=== PATIENT | female | born 1990 | race Caucasian/White ===

== ENCOUNTER 2018-03-12 23:32 | Emergency (ER) | payer BC ==
--- NOTE | 2018-03-13 00:13 | PDOC ---
History of Present Illness - General Stated Complaint: DIFF BREATHING Time Seen by Provider: 03/13/18 00:12 - History of Present Illness Initial Comments: 27 year old presenting 22 weeks by US with cough, SOB, and left sided chest pain worse with coughing for the pat day. States that she had some trouble breathing earlier this morning along with some nasal congestion that has been worsening over the day. After a few bouts of coughing she had some left sided chest pain. Denies any recent travel but has a long road trip to [place] in January 29-. Mother states that she always has mild respiratory issues during seasonal changes. Of note she lost a twin because of complications 4 months prior. Denies any fevers, chills, nausea, vomiting, diarrhea, or other symptoms. 03/13/18 03:13 Past History - Past Medical History Allergies/Adverse Reactions: Allergies Allergy/AdvReac Type Severity Reaction Status Date / Time No Known Allergies Allergy Verified 06/14/15 12:59 Home Medications: Ambulatory Orders Albuterol Sulfate Inhaler - [Ventolin HFA Inhaler -] 1 inh PO Q4H PRN 07/14/15 Docusate Sodium [Colace -] 100 mg PO DAILY 07/14/15 Pantoprazole Sodium [Protonix -] 40 mg PO DAILY #0 07/14/15 Rosuvastatin Calcium [Crestor] 20 mg PO DAILY 07/14/15 Anemia: No Asthma: No Cancer: No Cardiac Disorders: No CVA: No COPD: No CHF: No Dementia: No Diabetes: No GI Disorders: Yes (hx constipation) Disorders: No HTN: No Hypercholesterolemia: Yes Liver Disease: No Seizures: No Thyroid Disease: No - Surgical History Appendectomy: No Cardiac Surgery: No Cholecystectomy: No Lung Surgery: No Neurologic Surgery: No Orthopedic Surgery: No - Immunization History Immunization Up to Date: Yes - Suicide/Smoking/Psychosocial Hx Smoking Status: No Smoking History: Never smoked Have you smoked in the past 12 months: No Number of Cigarettes Smoked Daily: 0 Hx Alcohol Use: No Drug/Substance Use Hx: No Substance Use Type: None Hx Substance Use Treatment: No Review of Systems - Review of Systems Constitutional: No: Chills, Diaphoresis, Fever, Loss of Appetite HEENTM: No: Blurred Vision, Tearing Respiratory: Yes: Cough, Shortness of Breath, SOB with Exertion, Wheezing. No: Productive cough Cardiac (ROS): Yes: Chest Pain. No: Irregular Heart Rate, Lightheadedness, Palpitations, Chest Tightness ABD/GI: No: Constipated, Diarrhea, Nausea, Vomiting : No: Burning, Dysuria, Discharge, Frequency Musculoskeletal: No: Back Pain, Gout, Joint Pain Integumentary: No: Lesions, Lumps Neurological: No: Headache, Numbness, Paresthesia, Seizure Psychiatric: No: Anxiety, Depression Endocrine: No: Excessive Sweating, Flushing, Intolerance to Heat Hematologic/Lymphatic: No: Anemia, Blood Clots, Easy Bleeding, Easy Bruising *Physical Exam - Physical Exam General Appearance: Yes: Nourished, Appropriately Dressed. No: Apparent Distress HEENT: positive: EOMI, PAWAN, Normal ENT Inspection, Normal Voice Neck: positive: Trachea midline, Normal Thyroid, Supple. negative: Tender, Rigid Respiratory/Chest: positive: Respiratory Distress. negative: Chest Tender, Lungs Clear, Normal Breath Sounds (bilateral wheezes with mildly reduced air movement), Accessory Muscle Use Cardiovascular: positive: Regular Rhythm, Tachycardia. negative: Regular Rate Gastrointestinal/Abdominal: positive: Normal Bowel Sounds, Flat, Soft. negative : Tender Lymphatic: negative: Adenopathy, Tenderness Musculoskeletal: positive: Normal Inspection. negative: Decreased Range of Motion Extremity: positive: Normal Capillary Refill, Normal Inspection, Normal Range of Motion, Swelling (bilateral non-pitting pedal edema). negative: Tender Integumentary: positive: Normal Color, Dry, Warm Neurologic: positive: it disaster recovery manager II-XII NML intact, Fully Oriented, Alert, Normal Mood/ Affect, Normal Response, Motor Strength 10/22 ED Treatment Course - LABORATORY CBC & Chemistry Diagram: 03/13/18 01:00 03/13/18 01:00 Medical Decision Making - Medical Decision Making 27 year old female 23 weeks by LMP presenting with SOB, chest pain, wheezing, and nasal congestion. Labs WNL with exception of mildly elevated WBC. Patient's symptoms slightly improved after one albuterol neb and Tylenol 650. We discussed he risks/ benefits of a cxr to rule out PNA and patient was on board but then changed her mind when the xr tech discussed the radiation exposure with her. We then discussed getting a VQ scan for her elevated D-dimer (ordered after a team discussion) but she refused the study until she spoke with her high risk specialist because she recently lost two children during a high risk . We discussed the case with Dr. Coe who felt we should admit them to medicine but patient ended up refusing admission and signed out AMA after acknowledging the risks of her leaving our department including , worsening chest pain, and to her children. She did admit that her chest pain and breathing had improved after one more duoneb. She was discharged and sent up to the OB floor for heart rate check. 03/13/18 07:34 *DC/Admit/Observation/Transfer Diagnosis at time of Disposition: Cough, Shortness of breath - Discharge Dispostion Disposition: AGAINST MEDICAL ADVICE Condition at time of disposition: Stable Decision to Admit order: No - Referrals Referrals: [facility] [Provider Group] - Patient Instructions Printed Discharge Instructions: DI for Shortness of Breath Additional Instructions: You are leaving against our medical advice. Risks include worsening chest pain, worsening shortness of breath, loss of your life, or loss of your baby's life. If you want an inhaler please discuss it with your . Please use humidified air to help your breathing as well. Please follow up with your primary care physician and OBGyn within a few days. Please return to our ED if you have worsening breathing, worsening chest pain, or other concerning symptoms. Labor and delivery discharge instructions: Follow up with Primary Care doctor or Internal Medicine doctor prior to seeing your Youth Director to care for the shortness of breath. Discharge to home. Diet and activity as tolerated. Continue to drink 8-10 glasses of water a day to stay hydrated. Return to the labor and delivery unit if your water breaks, you begin bleeding, you begin having contractions that are increasing in intensity for longer than 1 hour, or you do not feel the baby moving. Print Language: GEORGIAN - Post Discharge Activity Forms/Work/School Notes: Back to Work
--- NOTE | 2018-03-13 00:19 | PDOC ---
Attending Attestation - Resident Resident Name: Fabien Jang - ED Attending Attestation I have performed the following: I have examined & evaluated the patient, The case was reviewed & discussed with the resident, I agree w/resident's findings & plan - HPI HPI: 03/13/18 00:56 Pt comes with tachcardia (122bpm) and SOB at 22 weeks of . She states that for the past couple of years she has had seasonal allergies. Today she is wheezing. Pt has a pulsox of 98% on RA. Pt states that she is not anxious, however, this past Jul she lost a twin gestation due to complications and she may be anxious. Pt tells me that in Jan 29- she drove to and from [place] to [place]. - Physicial Exam PE: 03/13/18 01:36 Agree with resident. Pt has wheezing bilaterally and throughout. Pt has tachy s1s2 rhythm Color is good. speaking in full sentences. She is comfortable. Pt has swollen ankles bilaterally - Medical Decision Making 03/13/18 01:36 Pt has an elevated WBC count. 03/13/18 02:12 Patient Name: BHAVIN PHAM THIS IS A PRELIMINARY REPORT FROM [facility] DATE OF SERVICE: 2018-03-13 01:31:13 IMAGES: 40 EXAM: Ultrasound DUPLEX VASCULAR US-2 LEGS HISTORY: Concern for deep vein thrombosis COMPARISON: None. FINDINGS: Ultrasound of bilateral lower extremity veins demonstrates normal compression flow and augmentation IMPRESSION: No deep vein thrombosis 03/13/18 04:05 Pt still feels SOB; she has 125 HR. She is refusing CXR and CT scan because she wants no radiation. She wants to speak to her PMD before she even gets a VQ scan. Pt will be admitted to med surg vs tele vs HOSPITAL NURSING ASSISTANT for her SOB and CP and 23 weeks gestation. 03/13/18 04:42 We spoke to OB cotton buyer Dr. Coe, who will not admit the patient; she will consult; she wants pt admitted to the medicine service. We are microblogging Hospitalist now. Pt will be admitted to medicine. 03/13/18 04:48 Pt is refusing to be admitted. She understands that she may have a pulmonary blood clot. She understands that we have not completely worked up her CP and her HTN. 03/13/18 04:55 Pt will AMA.
[2018-03-13 00:36] VITALS: BP 134/81; PULSE 121; TEMP 98.2; BMI 29.4
[2018-03-13] MEDS ORDERED: ALBUTEROL SO4 0.083% IH SOL 2.5 MG/3 ML VIAL.NEB. NEB ONE ×2 (00:37→00:45)
[2018-03-13 01:19] LABS: BASO % 0.4 % (0-2.0); EOS % 2.3 % (0-4.5); HEMOGLOBIN 11.3 GM/dL (10.7-15.3); LYMPH % 12.3 % (8-40); MCH 31.7 pg (25.7-33.7); MCHC 35.2 g/dl (32.0-36.0); MEAN PLT VOLUME 8.2 fl (7.5-11.1); MONO % 4.6 % (3.8-10.2); NEUT % 80.4 % (42.8-82.8); PLATELET COUNT 197 K/MM3 (134-434); RBC 3.55 M/mm3 (3.60-5.2); RDW 13.6 % (11.6-15.6); WHITE BLOOD COUNT 13.6 K/mm3 (4.0-10.0)
[2018-03-13 01:42] LABS: ALBUMIN 3.2 g/dl (3.4-5.0); ALK PHOS 65 U/L (45-117); ANION GAP 7 MMOL/L (8-16); BILIRUBIN,TOTAL 0.2 mg/dL (0.2-1); BLOOD UREA NITROGEN 9 mg/dL (7-18); CALCIUM 8.4 mg/dL (8.5-10.1); CHLORIDE 105 mmol/L (98-107); CO2 26 mmol/L (21-32); CREATININE 0.7 mg/dL (0.55-1.3); GLUCOSE,RANDOM 106 mg/dL (74-106); POTASSIUM 3.7 mmol/L (3.5-5.1); SGOT/AST 22 U/L (15-37); SGPT/ALT 24 U/L (13-61); SODIUM 138 mmol/L (136-145); TOT PROT 7.1 g/dl (6.4-8.2)
[2018-03-13 02:08] LABS: URINE APPEARANCE CLOUDY; URINE BILIRUBIN NEGATIVE (<2.0 mg/dL); URINE COLOR LTYELLOW; URINE GLUCOSE (UA) NEGATIVE (NEGATIVE); URINE KETONE NEGATIVE (NEGATIVE); URINE LEUK ESTERASE NEGATIVE (NEGATIVE); URINE NITRITE NEGATIVE (NEGATIVE); URINE PROTEIN NEGATIVE (NEGATIVE); URINE UROBILINOGEN NEGATIVE mg/dL (0.2-1.0)
[2018-03-13] MEDS ORDERED: SODIUM CHLORIDE 0.9% 500 ML INFUS.BAG IV ONE (02:23)
[2018-03-13] MEDS ORDERED: ACETAMINOPHEN 500 MG TABLET (FP) PO ONE (02:59)
[2018-03-13] MEDS ORDERED: ACETAMINOPHEN 325 MG TABLET (FP) ONE (03:54)
[2018-03-13] MEDS ORDERED: ALBUTEROL SO4 2.5/IPRATROPIUM 0.5 INH SOL 3 ML VIAL.NEB. NEB ONE ×2 (04:06→04:15)
--- NOTE | 2018-03-13 12:06 | EKG ---
Test Reason : Blood Pressure : / mmHG Vent. Rate : 114 BPM Atrial Rate : 114 BPM P-R Int : 100 ms QRS Dur : 064 ms QT Int : 304 ms P-R-T Axes : 030 068 032 degrees QTc Int : 419 ms POOR DATA QUALITY, INTERPRETATION MAY BE ADVERSELY AFFECTED SINUS TACHYCARDIA WITH SHORT RI OTHERWISE NORMAL ECG NO PREVIOUS ECGS AVAILABLE Confirmed by ANSELMO CAMACHO MD ([id number]) on 03/13/2018 12:06:01 PM Referred By: Confirmed By:ANSELMO CAMACHO MD
== END 2018-03-13 05:55 | disposition left against medical advice (07) ==
LOC: JER 23:32
PROC: 3E0F7GC Introduction of Other Therapeutic Substance into Respiratory Tract, Via Natural or Artificial Opening (ICD-10-PCS; principal; 2018-03-12)
PROC: 3E0F7GC Introduction of Other Therapeutic Substance into Respiratory Tract, Via Natural or Artificial Opening (ICD-10-PCS; 2018-03-12)
DX: O26.892 Other specified pregnancy related conditions, second trimester (principal); R07.9 Chest pain, unspecified; R06.02 Shortness of breath; Z3A.22 22 weeks gestation of pregnancy
CPT/HCPCS: 36415; 80053; 81003; 85025; 85379; 93005; 93010; 93970-TC; 99282-25; J7620

== ENCOUNTER 2018-07-01 23:00 | Inpatient (IN) | payer BC ==
[2018-07-01] MEDS: DEXTROSE 5%-LACTATED RINGERS 1,000 ML IV SCH (23:15)
[2018-07-01 23:57] LABS: BASO % 0.3 % (0-2.0); HEMATOCRIT 29.8 % (32.4-45.2); HEMOGLOBIN 10.8 GM/dL (10.7-15.3); LYMPH % 20.2 % (8-40); MCH 31.9 pg (25.7-33.7); MCHC 36.2 g/dl (32.0-36.0); MEAN CELL VOLUME 87.9 fl (80-96); MEAN PLT VOLUME 8.6 fl (7.5-11.1); MONO % 6.7 % (3.8-10.2); NEUT % 71.8 % (42.8-82.8); PLATELET COUNT 230 K/MM3 (134-434); RBC 3.39 M/mm3 (3.60-5.2)
[2018-07-02 00:05] VITALS: BMI 32.7
[2018-07-02 00:16] LABS: INR 0.9 (0.83-1.09); PROTHROMBIN TIME (PATIENT) 10.6 SEC (9.7-13.0)
[2018-07-02 00:18] LABS: ACTIVATED PTT 25.2 SECONDS (25.2-36.5)
[2018-07-02 00:23] LABS: ANION GAP 9 MMOL/L (8-16); BLOOD UREA NITROGEN 13 mg/dL (7-18); CALCIUM 8.5 mg/dL (8.5-10.1); CHLORIDE 104 mmol/L (98-107); CO2 23 mmol/L (21-32); CREATININE 0.6 mg/dL (0.55-1.3); GLUCOSE,RANDOM 82 mg/dL (74-106); POTASSIUM 3.8 mmol/L (3.5-5.1); SODIUM 136 mmol/L (136-145)
--- NOTE | 2018-07-02 00:28 | HP ---
Past Medical History - Primary Care Physician PCP:: Venkatesh Curiel - Admission Chief Complaint: 27yo P0 with at EGA 38w6d admitted with PROM since 9pm. History of Present Illness: PROM at 9pm with clear fluid. Vaginal GBS negative Evaluated for suspected PE at 23-24wks of EGA and refused admission/treatment. The pt was eventually treated for possible Asthma and her sx's resolved. She is asymptomatic now. History Source: Patient, Medical Record Limitations to Obtaining History: No Limitations - Past Medical History CHAIRMAN CEO: No: Alzheimer's, CVA, Dementia, Migraine, Multiple Sclerosis, Peripheral Neuropathy, Parkinson's, Seizure, Syncope, TIA, Vertigo, Other Cardiovascular: Yes: Other (Hypercholesterolemia) Pulmonary: No: Asthma, Bronchitis, Cancer, COPD, O2 Dependent, Pneumonia, Previously Intubated, Pulmonary Embolus, Pulmonary Fibrosis, Sleep Apnea, Other Gastrointestinal: No: Ascites, Cancer, Constipation, Crohn's Disease, Diverticulitis, Diverticulosis, Esophageal Varices, Gastritis, GERD, GI Bleed, Hemorrhoids, Hiatal Hernia, Inflamatory Bowel Disease, Irritable Bowel Disease, Pancreatitis, Peptic Ulcer Disease, Ulcerative Colitis, Other Hepatobiliary: No: Cirrhosis, Cholelithiasis, Cholecystitis, Choledocholithiasis , Hepatitis A, Hepatitis B, Hepatitis C, Other Renal/: No: Renal Failure, Renal Inusuff, BPH, Cancer, Hematuria, Hemodialysis , Neurogenic Bladder, Renal Calculi, UTI, Other Reproductive: No: Ectopic , Endometriosis, Fibroids, PID, Polycystic Ovary Syndrome, Postmenopausal, Other ...: 2 ...Para: 0 ...Term: 0 ...: 0 ...Spon : 0 ...Induced : 1 ...Multiple Gestation: 0 ...LMP: 10/03/17 ... Weeks Gestation by Dates: 38.5 ...EDC by Dates: 07/10/18 Heme/Onc: Yes: Anemia Infectious Disease: No: AIDS, C-Diff, Herpes Zoster, HIV, MRSA, STD's, Tuberculosis, VREF, Other Psych: No: Addictions, Anxiety, Bipolar, Depression, Panic, Psychosis, Schizophrenia, Other Musculoskeletal: No: Bursitis, Chronic low back pain, Hemiparesis, Hemiplegia, Osteoarthritis, Paraplegia, Other Rheumatology: No: Fibromyalgia, Gout, Lupus, Rheumatoid Arthritis, Sarcoidosis, Vasculitis, Other ENT: No: Allergic Rhinitis, Sinusitis, Other Endocrine: No: Eris's Disease, Jr's Disease, Diabetes Insipidus, Diabetes Mellitus, Hyperparathyroidism, Hyperthyroidism, Hypothyroidism, Osteopenia, SIADH, Other Dermatology: No: Basal Cell, Cellulitis, Eczema, Melanoma, Psoriasis, Squamous Cell, Other - Past Surgical History Past Surgical History: Yes: None Hx Myomectomy: No Hx Transabdominal Cerclage: No Additional Surgical History: Surgical of twin gestation due to NTD - Smoking History Smoking history: Never smoked Have you smoked in the past 12 months: No Aproximately how many cigarettes per day: 0 - Alcohol/Substance Use Hx Alcohol Use: No History of Substance Use: reports: None - Social History Usual Living Arrangement: Yes: With Spouse ADL: Independent History of Recent Travel: No Home Medications - Allergies Allergies/Adverse Reactions: Allergies Allergy/AdvReac Type Severity Reaction Status Date / Time No Known Allergies Allergy Verified 06/14/15 12:59 - Home Medications Home Medications: Ambulatory Orders Docusate Sodium [Colace -] 100 mg PO DAILY 07/14/15 Pantoprazole Sodium [Protonix -] 40 mg PO DAILY #0 07/14/15 Rosuvastatin Calcium [Crestor] 20 mg PO DAILY 07/14/15 Family Disease History - Family Disease History Family History: Unremarkable Review of Systems - Review of Systems Constitutional: reports: No Symptoms Eyes: reports: No Symptoms HENT: reports: No Symptoms Neck: reports: No Symptoms Cardiovascular: reports: No Symptoms Respiratory: reports: No Symptoms Gastrointestinal: reports: No Symptoms Genitourinary: reports: No Symptoms Breasts: reports: No Symptoms Reported Musculoskeletal: reports: No Symptoms Integumentary: reports: No Symptoms Neurological: reports: No Symptoms Endocrine: reports: No Symptoms Hematology/Lymphatic: reports: No Symptoms Psychiatric: reports: No Symptoms Pain Intensity: 0 Physical Exam - Maternity Vital Signs: Vital Signs Temperature 98.5 F 07/01/18 23:10 Pulse Rate 114 H 07/01/18 23:10 Respiratory Rate 20 07/02/18 00:05 Blood Pressure 137/80 07/01/18 23:10 O2 Sat by Pulse Oximetry (%) Constitutional: Yes: Well Nourished, No Distress, Calm Eyes: Yes: WNL, Conjunctiva Clear HENT: Yes: WNL, Atraumatic, Normocephalic Neck: Yes: WNL, Supple, Trachea Midline Cardiovascular: Yes: WNL, Regular Rate and Rhythm Lungs: Clear to auscultation, Normal air movement - Abdominal Exam/OB Fundal Height: 39 Number of Fetuses: Single Presentation: Vertex Contractions: No Regularity: Irritability Intensity: Unaware Monitor Mode: External Heart Rate (range): 140 Heart Rate Location: Midline Category: I Accelerations: Uniform Decelerations: None - Vaginal Exam/OB Vaginal Bleediing: No Speculum Exam: No Dilatation (cm): 2 Effacement (%): 30 Amniotic Membrane Status: Leaking Nitrazine Test: Positive Amniotic Fluid: Yes: Clear Presentation: Vertex/Position Station: -3 (Adequate pelvimetry, EFW ~3400g) - Physical Exam Musculoskeletal: Yes: WNL Extremities: Yes: WNL Edema: No Edema: LLE: Trace, RLE: Trace Integumentary: Yes: WNL Deep Tendon Reflex Grade: Normal +2 ...Motor Strength: WNL Psychiatric: Yes: WNL, Alert, Oriented - Labs Lab Results: CBC, BMP 07/01/18 23:30 Hemorrhage Risk Assessment - Risk Factors Medium Risk Factors: Yes: None High Risk Factors: Yes: None Risk Score: 1 Risk Level: Medium Risk Imaging - Results Ultrasound: Report Reviewed Assessment/Plan 27yo P0 with at EGA 38w6d admitted with PROM since 9pm. Pt is not in labor. Fetus with Category I tracing. Adequate gynecoid pelvimetry on exam. We had long discussion re: risks, benefits, and alternatives of labor induction. I explained the options of expectant management awaiting spontaneous labor, induction of labor, and elective section. The risks of uterine tachysystole, distress, uterine rupture, need for emergency C/S, hemorrhage, infection, scarring, etc. were discussed. We also discussed the risks of meconium aspiration, shoulder dystocia, and anesthesia options. The pt requested to await spontaneous labor for the next 2 hours and then pitocin, in not in labor.
[2018-07-02] MEDS ORDERED: OXYTOCIN 30 UNITS in 0.9% NS 30 UNIT/500 ML INFUS.BAG IVPB SCH (00:30)
[2018-07-02] MEDS ORDERED: OXYTOCIN 30 UNITS in 0.9% NS 30 UNIT/500 ML INFUS.BAG IVPB ONE (08:21)
[2018-07-02] MEDS: DEXTROSE 5%-LACTATED RINGERS 1,000 ML IV SCH ×2 (11:25→17:46)
--- NOTE | 2018-07-02 12:27 | PN ---
Ante-Partal Exam - Subjective Subjective: No complaints. Not feeling contractions. Vital Signs: Vital Signs Temperature 98.2 F 07/02/18 11:00 Pulse Rate 75 07/02/18 11:00 Respiratory Rate 20 07/02/18 11:00 Blood Pressure 112/70 07/02/18 11:00 O2 Sat by Pulse Oximetry (%) Bleeding: No Headache: No Visual changes: No Right upper quadrant pain: No Pain (scale 1-10): 0 - Contractions Contractions: Yes Regularity: Irregular Intensity: Unaware Monitor Mode: External - Exam during Labor Heart Rate: 145 Variability: Moderate Heart Rate Location: Midline Category: I Monitor Accelerations: Present Monitor Decelerations: None Exam: Vaginal Dilatation (cm): 2 Effacement (%): 50 Amniotic Membrane Status: Leaking Amniotic Fluid: Clear Presentation: Vertex Station: -3 Remarks: Adequate pelvimetry. EWF 3400g - Intrapartum Hemorrhage Risk Medium Risk Factors: None High Risk Factors: None Risk Score: 0 Risk Level: Low Risk - Assessment/Plan Assessment/Plan: 27yo with at EGA 38w6d admitted with PROM. Pt is not in labor and agreed to start pitocin at 9am. The fetus with Category I tracing. Labor is induced with pitocin. Plan to monitor labor progress.
[2018-07-02] MEDS ORDERED: PROMETHAZINE HCL 25 MG/1 ML VIAL ONE (15:58)
[2018-07-02] MEDS ORDERED: BUTORPHANOL TARTRATE 1 MG/ML VIAL ONE ×2 (15:58)
[2018-07-02] MEDS ORDERED: PROMETHAZINE HCL 25 MG/1 ML VIAL IVPB ONE (16:01)
[2018-07-02] MEDS ORDERED: BUTORPHANOL TARTRATE 1 MG/ML VIAL IVPB ONE (16:01)
--- NOTE | 2018-07-02 16:01 | PN ---
Ante-Partal Exam - Subjective Subjective: Pt requested pain management. She prefers sedation. Vital Signs: Vital Signs Temperature 97.9 F 07/02/18 14:00 Pulse Rate 75 07/02/18 15:00 Respiratory Rate 18 07/02/18 15:00 Blood Pressure 130/70 07/02/18 15:00 O2 Sat by Pulse Oximetry (%) Bleeding: No Headache: No Visual changes: No Right upper quadrant pain: No Pain (scale 1-10): 8 - Contractions Contractions: Yes Regularity: Regular Intensity: Moderate Monitor Mode: External - Exam during Labor Heart Rate: 145 Variability: Moderate Heart Rate Location: Midline Category: I Monitor Accelerations: Present Monitor Decelerations: None Amniotic Membrane Status: Leaking Amniotic Fluid: Clear - Intrapartum Hemorrhage Risk Medium Risk Factors: None High Risk Factors: None Risk Score: 0 Risk Level: Low Risk - Assessment/Plan Assessment/Plan: 27yo P0 with PROM undergoing labor induction. Fetus with Category I tracing. Pitocin rate was reduced due to contractions being q 1-2 minutes. Pain mgt options d/w pt and she prefers IV Stadol and Phenergan. Plan to titrate pitocin and monitor labor progress.
--- NOTE | 2018-07-02 18:24 | PN ---
Ante-Partal Exam - Subjective Subjective: Pt with pain and pelvic pressure. Vital Signs: Vital Signs Temperature 97.8 F 07/02/18 18:00 Pulse Rate 73 07/02/18 18:00 Respiratory Rate 18 07/02/18 18:00 Blood Pressure 143/74 07/02/18 18:00 O2 Sat by Pulse Oximetry (%) Bleeding: No Headache: No Visual changes: No Right upper quadrant pain: No Pain (scale 1-10): 10 - Contractions Contractions: Yes Regularity: Regular Intensity: Moderate Monitor Mode: External - Exam during Labor Heart Rate: 145 Variability: Moderate Heart Rate Location: Midline Category: I Monitor Accelerations: Present Monitor Decelerations: Early Exam: Vaginal Dilatation (cm): 4 Effacement (%): 80 Amniotic Membrane Status: Leaking Presentation: Vertex Station: -3 - Intrapartum Hemorrhage Risk Medium Risk Factors: None High Risk Factors: None Risk Score: 0 Risk Level: Low Risk - Assessment/Plan Assessment/Plan: Progressing in latent labor. Fetus with Category 1 tracing. We discussed pain mgt options and pt prefers an epidural. Risks, benefits, alternatives of epidural discussed. Anesthesia called.
[2018-07-02] MEDS ORDERED: FENTANYL/BUPIVACAINE/NS/PF - PCEA - 50 ML DISP.SYRIN EP ONE ×2 (18:25→21:59)
[2018-07-02] MEDS ORDERED: ELECTROLYTE-148 SOLN 500 ML IV ONE (18:26)
[2018-07-02] MEDS ORDERED: BUPIVACAINE HCL/PF 0.25% (2.5MG/ML) 10 ML VIAL ONE (18:47)
[2018-07-02] MEDS: FENTANYL/BUPIVACAINE/NS/PF - PCEA - 50 ML DISP.SYRIN EP SCH (18:50)
[2018-07-02] MEDS ORDERED: NALOXONE HCL 0.4 MG/ML VIAL IVPUSH PRN (18:51)
[2018-07-02] MEDS: ELECTROLYTE-148 SOLN 1,000 ML IV SCH ×2 (19:00→21:00)
--- NOTE | 2018-07-02 19:26 | PN ---
Ante-Partal Exam - Subjective Subjective: Comfortable with epidural. BP dropped slightly to 90/60. FHT noted with tachycardia. Vital Signs: Vital Signs Temperature 97.8 F 07/02/18 18:00 Pulse Rate 65 07/02/18 18:38 Respiratory Rate 20 07/02/18 18:38 Blood Pressure 132/56 L 07/02/18 18:38 O2 Sat by Pulse Oximetry (%) Bleeding: No Headache: No Visual changes: No Right upper quadrant pain: No Pain (scale 1-10): 0 - Contractions Contractions: Yes Regularity: Irregular Monitor Mode: External - Exam during Labor Heart Rate: 160 Variability: Moderate Category: II Monitor Accelerations: Absent Monitor Decelerations: None Exam: Vaginal Dilatation (cm): 6 Effacement (%): 90 Amniotic Membrane Status: Leaking Presentation: Vertex Station: -3 Remarks: FSE placed - Intrapartum Hemorrhage Risk Medium Risk Factors: None High Risk Factors: None Risk Score: 0 Risk Level: Low Risk - Assessment/Plan Assessment/Plan: 27yo P0 s/p epidural placed. Pt with tachycardia after epidural. FSE placed and IV fluids are bolused. Oxygen given by mask. Pt is in left lateral position. Plan to monitor FHT and labor progress. Labor progressed to active phase.
[2018-07-02] MEDS ORDERED: OXYTOCIN 20 UNITS in 0.9% NS 20 UNIT/1,000 ML INFUS.BAG IV ONE (21:09)
[2018-07-02] MEDS ORDERED: LIDOCAINE HCL 1% PRESERVATIVE FREE - 30ML VIAL ONE (21:10)
--- NOTE | 2018-07-02 21:46 | PN ---
Ante-Partal Exam - Subjective Subjective: Pt is c/o pelvic pressure. She had IUPC inserted at 20;31 due to inability to pickler helper contractions and pt on pitocin. The VE at that time was 9/90/0. The pt was again c/o a lot pressure and was re-examined at 21:20 with VE anterior lip/100/0. Since the contractions were noted to be q1-3 minutes, the pitocin was turned off at 21:35. Vital Signs: Vital Signs Temperature 97.8 F 07/02/18 20:00 Pulse Rate 59 L 07/02/18 19:30 Respiratory Rate 20 07/02/18 19:30 Blood Pressure 117/55 L 07/02/18 19:30 O2 Sat by Pulse Oximetry (%) 100 07/02/18 19:30 Bleeding: No Headache: No Visual changes: No Right upper quadrant pain: No Pain (scale 1-10): 0 - Contractions Contractions: Yes Regularity: Irregular Intensity: Moderate Monitor Mode: Internal - Exam during Labor Heart Rate: 150 Variability: Moderate Category: II Monitor Accelerations: Absent Monitor Decelerations: Variable Exam: Vaginal Dilatation (cm): 9.5 Effacement (%): 100 Amniotic Membrane Status: Leaking Amniotic Fluid: Clear Presentation: Vertex Station: 0 - Intrapartum Hemorrhage Risk Medium Risk Factors: None High Risk Factors: None Risk Score: 0 Risk Level: Low Risk - Assessment/Plan Assessment/Plan: The labor progressed in active phase. The tracing is Category 2 due to variable decels from 150 to 110 bpm. Pitocin was turned off. No need for surgical intervention at this point. Monitor closely.
[2018-07-02] MEDS ORDERED: ACETAMINOPHEN 325 MG TABLET (FP) PO PRN (23:25)
[2018-07-02] MEDS ORDERED: BENZOCAINE 28 GM HEMORRHOIDAL OINTMENT TP PRN (23:25)
[2018-07-02] MEDS ORDERED: METHYLERGONOVINE MALEATE 0.2 MG/1 ML AMP IM PRN (23:25)
[2018-07-02] MEDS ORDERED: BISACODYL 10 MG SUPP.RECT RC PRN (23:25)
[2018-07-02] MEDS ORDERED: WITCH HAZEL 50% (TUCKS) 40 PAD/JAR PAD TP PRN (23:25)
[2018-07-02] MEDS ORDERED: BENZOCAINE 20% 57 GM BOTTLE TP PRN (23:25)
[2018-07-02] MEDS ORDERED: IBUPROFEN 600 MG TABLET (FP) PO PRN (23:25)
[2018-07-02] MEDS ORDERED: OXYTOCIN 20 UNITS in 0.9% NS 20 UNIT/1,000 ML INFUS.BAG IV SCH (23:30)
[2018-07-02 23:45] LABS: ARTERIAL BLOOD GAS BASE EXCESS -9.2 meq/l (-2-2); ARTERIAL BLOOD GAS PCO2 56.6 mmHg (35-45)
[2018-07-02 23:53] LABS: VENOUS PC02 52.3 mmHg (38-52)
[2018-07-02 23:54] LABS: ALLENS TEST POSITIVE; ARTERIAL BLD GAS O2 SATURATION 25.4 % (90-98.9); ARTERIAL BLOOD GAS PO2 18.8 mmHg (80-100); ARTERIAL BLOOD GAS pH 7.18 (7.35-7.45)
[2018-07-02 23:55] LABS: VENOUS PH 7.13 (7.32-7.42)
[2018-07-03] MEDS ORDERED: OXYTOCIN 20 UNITS in 0.9% NS 20 UNIT/1,000 ML INFUS.BAG IV ONE (01:05)
[2018-07-03 07:09] LABS: BASO % 0.3 % (0-2.0); EOS % 0.2 % (0-4.5); HEMATOCRIT 28.7 % (32.4-45.2); HEMOGLOBIN 9.6 GM/dL (10.7-15.3); LYMPH % 8.5 % (8-40); MCH 29.8 pg (25.7-33.7); MCHC 33.4 g/dl (32.0-36.0); MEAN CELL VOLUME 89.2 fl (80-96); MEAN PLT VOLUME 8.2 fl (7.5-11.1); MONO % 5.8 % (3.8-10.2); NEUT % 85.2 % (42.8-82.8); PLATELET COUNT 167 K/MM3 (134-434); RBC 3.21 M/mm3 (3.60-5.2); RDW 14.1 % (11.6-15.6); WHITE BLOOD COUNT 15.8 K/mm3 (4.0-10.0)
[2018-07-03] MEDS: PRENATAL VITAMINS W/ FOLIC ACID TABLET (FP) PO SCH (09:11)
--- NOTE | 2018-07-03 09:46 | PN ---
Post Progress Note - Subjective Subjective: Patient without acute complaints. Reports tolerating oral intake without nausea or vomiting. Ambulating without dizziness. Denies fevers or chills. Pain well controlled with oral pain medication. Breast feeding without issue. Passing flatus, no BM. Post Day: 1 Type of Delivery: Vital Signs: Vital Signs Temperature 97.7 F 07/03/18 07:53 Pulse Rate 90 07/03/18 07:53 Respiratory Rate 18 07/03/18 07:53 Blood Pressure 125/72 07/03/18 07:53 O2 Sat by Pulse Oximetry (%) 100 07/03/18 00:15 Breast Exam: Yes: Soft Uterus: Yes: Fundus Firm, Fundus below umbilicus, Non-tender Abdomen/GI: Yes: Abdomen soft, Passing flatus, Tolerating PO Lochia: Yes: Rubra Lochia, amount: Small Extremities: Yes: Calves non-tender Perineum: Yes: Intact Activity: Ambulating - Labs Labs: CBC WBC 15.8 K/mm3 (4.0-10.0) H 07/03/18 06:00 RBC 3.21 M/mm3 (3.60-5.2) L 07/03/18 06:00 Hgb 9.6 GM/dL (10.7-15.3) L 07/03/18 06:00 Hct 28.7 % (32.4-45.2) L 07/03/18 06:00 MCV 89.2 fl (80-96) 07/03/18 06:00 MCH 29.8 pg (25.7-33.7) 07/03/18 06:00 MCHC 33.4 g/dl (32.0-36.0) 07/03/18 06:00 RDW 14.1 % (11.6-15.6) 07/03/18 06:00 Plt Count 167 K/MM3 (134-434) D 07/03/18 06:00 MPV 8.2 fl (7.5-11.1) 07/03/18 06:00 Absolute Neuts (auto) 13.4 K/mm3 (1.5-8.0) H 07/03/18 06:00 Neutrophils % 85.2 % (42.8-82.8) H 07/03/18 06:00 Lymphocytes % 8.5 % (8-40) D 07/03/18 06:00 Monocytes % 5.8 % (3.8-10.2) 07/03/18 06:00 Eosinophils % 0.2 % (0-4.5) 07/03/18 06:00 Basophils % 0.3 % (0-2.0) 07/03/18 06:00 Nucleated RBC % 0 % (0-0) 07/03/18 06:00 Assessment/Plan 27yo P1 s/p , doing well stable, afebrile. Asymptomatic for anemia. care instructions reviewed. Continue routine care. Ambulation encouraged Discharge instruction reviewed.
--- NOTE | 2018-07-03 09:49 | DS ---
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 Vital Signs: Vital Signs Temperature 97.7 F 07/03/18 07:53 Pulse Rate 90 07/03/18 07:53 Respiratory Rate 18 07/03/18 07:53 Blood Pressure 125/72 07/03/18 07:53 O2 Sat by Pulse Oximetry (%) 100 07/03/18 00:15 Constitutional: Yes: Well Nourished, No Distress, Calm Eyes: Yes: WNL, Conjunctiva Clear HENT: Yes: WNL, Atraumatic, Normocephalic Neck: Yes: WNL, Supple, Trachea Midline Cardiovascular: Yes: WNL, Regular Rate and Rhythm Respiratory: Yes: WNL, Regular, CTA Bilaterally Gastrointestinal: Yes: WNL, Normal Bowel Sounds, Soft ...Rectal Exam: Yes: Deferred Renal/: Yes: WNL ....Post : Yes: Uterus firm, Uterus non-tender, Slight lochia rubra Musculoskeletal: Yes: WNL Extremities: Yes: WNL Edema: Yes Edema: LLE: 1+, RLE: 1+ Integumentary: Yes: WNL Neurological: Yes: WNL, Alert, Oriented ...Motor Strength: WNL Psychiatric: Yes: WNL, Alert, Oriented Labs: CBC, BMP 07/03/18 06:00 07/01/18 23:30 Delivery - Delivery Vaginal Delivery: No Problems, Spontaneous Type of Anesthesia: Epidural Episiotomy/Laceration: None EBL (cc): 300 Delivery, Single - Stages of Labor Date 1st Stage Initiatied: 07/02/18 Time 1st Stage Initiated: 09:05 Date 2nd Stage Initiated: 07/02/18 Time 2nd Stage Initiated: 22:30 Date of Delivery: 07/02/18 Time of Delivery: 23:04 Date Placenta Delivered: 07/02/18 Time Placenta Delivered: 23:15 Placenta: Yes: Spontaneous, Normal 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 Anemia Procedures: Principal: SOFIYA Hospital Course: Normal recovery Condition: Good - Instructions Diet, Activity, Other Instructions: Physical activity Resume your normal everyday activity as tolerated no heavy lifting or exercise until seen by your surgeon. You may walk unlimited garland of and climb stairs. You may resume driving the car when you feel safe and comfortable behind the wheel. No sexual activity as instructed. Wound care If you have a bandage, leave it on, and keep dry for 48-72 hours. After that time discard the outer bandage. If they are tapes on the skin under the out of bandage leave them in place. They will peel off in the next 7 to 10 days. Do Not Peel them off. You may shower the day after surgery. If there are tapes present on the skin, you may shower over them. Diet There are no dietary restrictions. Eat healthy, high-fiber foods. Drink 6 to 8 glasses of liquid each day. This will assist in keeping your bowels are regular. Pain management You may take Tylenol or acetaminophen or Ibuprofen (for example, Motrin, Advil etc.) from my pain prescription medication is ordered should be taken as prescribed for moderate to severe pain. Call MD for any of the following: Severe pain not relieved by medication Fever of 101 or higher Excessive bleeding or drainage on dressing Inability to urinate Referrals: Reji Ambrosio MD [Staff Physician] - Venkatesh Curiel MD [Staff Physician] - Disposition: HOME - Home Medications Comprehensive Discharge Medication List: Ambulatory Orders Vits96/Iron Fum/Folic [ Tablet] 1 each PO DAILY 07/02/18
[2018-07-03] MEDS: FENTANYL/BUPIVACAINE/NS/PF - PCEA - 50 ML DISP.SYRIN EP SCH (19:24)
[2018-07-03] MEDS ORDERED: SENNOSIDES/DOCUSATE COMBO (SENNA PLUS) TABLET (UD) PO PRN (22:00)
[2018-07-04 08:46] VITALS: BP 122/64; PULSE 64; TEMP 97.7
[2018-07-04] MEDS: PRENATAL VITAMINS W/ FOLIC ACID TABLET (FP) PO SCH (09:44)
--- NOTE | 2018-07-04 12:05 | PN ---
Post Progress Note - Subjective Subjective: Patient was discharged and left prior to being seen Post Day: 2 Type of Delivery: Vital Signs: Vital Signs Temperature 97.7 F 07/04/18 08:44 Pulse Rate 64 07/04/18 08:44 Respiratory Rate 20 07/04/18 08:44 Blood Pressure 122/64 07/04/18 08:44 O2 Sat by Pulse Oximetry (%) 100 07/03/18 00:15 - Labs Labs: CBC WBC 15.8 K/mm3 (4.0-10.0) H 07/03/18 06:00 RBC 3.21 M/mm3 (3.60-5.2) L 07/03/18 06:00 Hgb 9.6 GM/dL (10.7-15.3) L 07/03/18 06:00 Hct 28.7 % (32.4-45.2) L 07/03/18 06:00 MCV 89.2 fl (80-96) 07/03/18 06:00 MCH 29.8 pg (25.7-33.7) 07/03/18 06:00 MCHC 33.4 g/dl (32.0-36.0) 07/03/18 06:00 RDW 14.1 % (11.6-15.6) 07/03/18 06:00 Plt Count 167 K/MM3 (134-434) D 07/03/18 06:00 MPV 8.2 fl (7.5-11.1) 07/03/18 06:00 Absolute Neuts (auto) 13.4 K/mm3 (1.5-8.0) H 07/03/18 06:00 Neutrophils % 85.2 % (42.8-82.8) H 07/03/18 06:00 Lymphocytes % 8.5 % (8-40) D 07/03/18 06:00 Monocytes % 5.8 % (3.8-10.2) 07/03/18 06:00 Eosinophils % 0.2 % (0-4.5) 07/03/18 06:00 Basophils % 0.3 % (0-2.0) 07/03/18 06:00 Nucleated RBC % 0 % (0-0) 07/03/18 06:00 Assessment/Plan Patient was discharged without being seen
--- NOTE | 2018-07-07 17:55 | PATH ---
Surgical Pathology Report Patient Name: BHAVIN PHAM Med. Rec. 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 Specimen(s) Received PLACENTA Clinical History Final Diagnosis PLACENTA: THIRD TRIMESTER PLACENTA. TRIVASCULAR CORD. MEMBRANES WITH NO DIAGNOSTIC ABNORMALITIES. Electronically Signed Martha Ríos M.D. Gross Description The specimen is received fresh labeled placenta and is a 329 gram, 18.0 x 14.5 x 2.0 cm. placenta with attached membranes and umbilical cord. The attached membranes are gomez, translucent with focal opacities and insert marginally. The umbilical cord measures 13 cm. in length and averages 1.1 cm. in diameter. The cord inserts eccentrically, 5 cm. to the nearest margin. No true knots or strictures are identified. Cut surface of the umbilical cord reveals 3 vessels. The surface is hernandez-blue with minimal fibrin deposition and appropriate caliber vessels. The maternal surface is red-brown with focal defects. Sectioning reveals red-brown, spongy parenchyma. No lesions are identified. [employer] sections are submitted in three cassettes as follows: 1- membrane rolls and umbilical cord; 2-3- full thickness sections of placenta. /07/06/2018 saudi07/06/2018
== END 2018-07-04 11:00 | disposition home or self-care (01) | DRG 807 ==
LOC: JLDR 23:00 → J3W 07-03 01:25
PROVIDERS: ADMIT Obstetrics & Gynecology; ATTEND Obstetrics & Gynecology
PROC: 10E0XZZ Delivery of Products of Conception, External Approach (ICD-10-PCS; principal; 2018-07-02)
DX: O80 Encounter for full-term uncomplicated delivery (principal); Z37.0 Single live birth; Z3A.38 38 weeks gestation of pregnancy
CPT/HCPCS: 36415; 36600; 59409; 80048; 82803; 85025; 85610; 85730; 86593; 86850; 86900; 86901; 87389; 88307-TC

== ENCOUNTER 2021-07-17 04:57 | Day surgery (SDC) | payer BC ==
[2021-07-13 14:56] VITALS: BMI 27.0
[2021-07-17 11:36] VITALS: TEMP 97.5
[2021-07-17 12:25] VITALS: BP 105/75; PULSE 80
== END 2021-07-17 12:35 | disposition home or self-care (01) ==
LOC: JASU-ENDO 04:57
PROVIDERS: ATTEND Internal Medicine Gastroenterology
PROC: 0DB68ZX Excision of Stomach, Via Natural or Artificial Opening Endoscopic, Diagnostic (ICD-10-PCS; 2021-07-17)
PROC: 0DB28ZX Excision of Middle Esophagus, Via Natural or Artificial Opening Endoscopic, Diagnostic (ICD-10-PCS; 2021-07-17)
PROC: 0DB48ZX Excision of Esophagogastric Junction, Via Natural or Artificial Opening Endoscopic, Diagnostic (ICD-10-PCS; 2021-07-17)
PROC: 0DB98ZX Excision of Duodenum, Via Natural or Artificial Opening Endoscopic, Diagnostic (ICD-10-PCS; principal; 2021-07-17 12:00)
DX: K21.00 Gastro-esophageal reflux disease with esophagitis, without bleeding (principal); K29.80 Duodenitis without bleeding; K29.50 Unspecified chronic gastritis without bleeding
CPT/HCPCS: 81025; 88305-TC; 88342-TC

== ENCOUNTER 2021-10-29 04:25 | Day surgery (SDC) | payer BC ==
[2021-10-26 12:35] VITALS: BMI 26.2
[2021-10-29] MEDS ORDERED: MIDAZOLAM HCL 2 MG/2 ML SINGLE DOSE VIAL ONE (13:53)
[2021-10-29] MEDS ORDERED: PROPOFOL 20 ML ONE ×2 (13:54)
[2021-10-29] MEDS ORDERED: LIDOCAINE HCL/PF 2% SDV 5ML VIAL ONE (13:56)
[2021-10-29] MEDS ORDERED: SUCCINYLCHOLINE CHLORIDE 200 MG/10 ML SYRINGE ONE (13:56)
[2021-10-29] MEDS ORDERED: ceFAZolin SODIUM 1 GM VIAL ONE (14:16)
[2021-10-29] MEDS ORDERED: DEXAMETHASONE SOD PHOSPHATE 4 MG/1 ML VIAL ONE (14:17)
[2021-10-29] MEDS ORDERED: KETOROLAC TROMETHAMINE 30 MG/1 ML VIAL ONE (14:17)
[2021-10-29] MEDS ORDERED: ceFAZolin SODIUM 1 GM VIAL IVPB ONE (14:20)
[2021-10-29] MEDS ORDERED: ePHEDrine SULFATE 50 MG/1 ML AMPULE ONE (14:21)
[2021-10-29] MEDS ORDERED: IBUPROFEN 600 MG TABLET (FP) PO PRN (14:35)
[2021-10-29] MEDS ORDERED: ONDANSETRON 4 MG/2 ML VIAL IVPUSH PRN (14:35)
[2021-10-29] MEDS ORDERED: oxyCODONE HCL 5 MG TABLET PO PRN (14:35)
[2021-10-29] MEDS ORDERED: IBUPROFEN 800 MG/8 ML IJ IVPB PRN (14:35)
[2021-10-29] MEDS ORDERED: ONDANSETRON 4 MG/2 ML VIAL ONE (14:40)
[2021-10-29] MEDS ORDERED: ELECTROLYTE-148 SOLN 1,000 ML IV SCH (14:45)
[2021-10-29] MEDS ORDERED: PROMETHAZINE HCL 25 MG/1 ML VIAL IVPUSH PRN (14:55)
[2021-10-29] MEDS ORDERED: LACTATED RINGERS SOLUTION 1,000 ML IV SCH (15:00)
[2021-10-29 16:41] VITALS: BP 110/64; PULSE 67; TEMP 98
== END 2021-10-29 16:50 | disposition home or self-care (01) ==
LOC: JASU-SURG 04:25
PROVIDERS: ATTEND Obstetrics & Gynecology
PROC: 0UDB7ZZ Extraction of Endometrium, Via Natural or Artificial Opening (ICD-10-PCS; 2021-10-29)
PROC: 0UBC8ZX Excision of Cervix, Via Natural or Artificial Opening Endoscopic, Diagnostic (ICD-10-PCS; principal; 2021-10-29 14:00)
DX: N93.9 Abnormal uterine and vaginal bleeding, unspecified (principal); N84.1 Polyp of cervix uteri; Z97.5 Presence of (intrauterine) contraceptive device
CPT/HCPCS: 81025; 88305-TC; 94760

== ENCOUNTER 2024-12-11 06:20 | Day surgery (SDC) | payer BC ==
[2024-12-07 10:22] VITALS: BMI 23.3
[2024-12-11] MEDS ORDERED: LIDOCAINE HCL/PF 2% SDV 5ML VIAL ONE (11:50)
[2024-12-11] MEDS ORDERED: KETOROLAC TROMETHAMINE 30 MG/1 ML VIAL ONE (11:50)
[2024-12-11] MEDS ORDERED: ONDANSETRON 4 MG/2 ML VIAL ONE (11:50)
[2024-12-11] MEDS ORDERED: DEXAMETHASONE SOD PHOSPHATE 4 MG/1 ML VIAL ONE (11:50)
[2024-12-11] MEDS ORDERED: SEVOFLURANE 250 ML BTL ONE (11:52)
[2024-12-11] MEDS ORDERED: PROPOFOL 20 ML ONE ×2 (11:54→12:53)
[2024-12-11] MEDS ORDERED: MIDAZOLAM HCL 2 MG/2 ML SINGLE DOSE VIAL ONE ×2 (11:55→12:53)
[2024-12-11] MEDS ORDERED: oxyCODONE HCL 5 MG TABLET PO PRN (12:17)
[2024-12-11] MEDS ORDERED: PROMETHAZINE HCL 25 MG/1 ML VIAL IVPB PRN (12:17)
[2024-12-11] MEDS ORDERED: LACTATED RINGERS SOLUTION 1,000 ML IV SCH (12:30)
[2024-12-11 13:30] VITALS: RESP 16; TEMP 97.1
[2024-12-11 14:53] VITALS: BP 120/72; PULSE 66
== END 2024-12-11 15:05 | disposition home or self-care (01) ==
LOC: JASU-SURG 06:20
PROVIDERS: ATTEND Obstetrics & Gynecology
PROC: 0UPD8HZ Removal of Contraceptive Device from Uterus and Cervix, Via Natural or Artificial Opening Endoscopic (ICD-10-PCS; principal; 2024-12-11 12:00)
DX: T83.89XA Other specified complication of genitourinary prosthetic devices, implants and grafts, initial encounter (principal)
CPT/HCPCS: 81025; 88300-TC; 88304-TC